=== PATIENT | female | born 1975 | race Caucasian/White ===

== ENCOUNTER 2018-11-24 16:19 | Outpatient (CLI) | payer BC ==
--- NOTE | 2018-11-24 16:44 | MMO ---
Bilateral MAMMO Bilat Screen [facility]. CLINICAL HISTORY: Patient is 42 years old and is seen for screening. The patient has no family history of breast cancer. The patient has no personal history of cancer. VIEWS: The views performed were: bilateral craniocaudal with tomosynthesis and bilateral mediolateral oblique with tomosynthesis. FILMS COMPARED: The present examination has been compared to a prior imaging study performed at [facility] on 01/19/2017. MAMMOGRAM FINDINGS: There are scattered fibroglandular densities. There are no suspicious masses, suspicious calcifications, or new areas of architectural distortion. IMPRESSION: THERE IS NO MAMMOGRAPHIC EVIDENCE OF MALIGNANCY. A ROUTINE FOLLOW-UP MAMMOGRAM IN 1 YEAR IS RECOMMENDED. THE RESULTS OF THIS EXAM WERE SENT TO THE PATIENT. ACR BI-RADS Category 1 - Negative MAMMOGRAPHY NOTE: 1. A negative mammogram report should not delay a biopsy if a dominant of clinically suspicious mass is present. 2. Approximately 10% to 15% of breast cancers are not detected by mammography. 3. Adenosis and dense breasts may obscure an underlying neoplasm.
== END 2018-11-24 16:20 | disposition home or self-care (01) ==
LOC: BICMAMMO 16:19
PROVIDERS: ATTEND Family Medicine Sports Medicine
DX: Z12.31 Encounter for screening mammogram for malignant neoplasm of breast (principal)
CPT/HCPCS: 77063; 77067

== ENCOUNTER 2020-03-27 08:22 | Outpatient (CLI) | payer BC ==
--- NOTE | 2020-03-27 08:44 | RAD ---
EXAM: XR Cerv Sp Ap Lat STANDARD PROVIDED CLINICAL HISTORY: Neck pain with pain on left side of neck. No recent injury. Occasional bilateral hand tightness. COMPARISON: None FINDINGS: C1 to the cervicothoracic junction is seen on the lateral view. Straightening of the normal cervical lordotic curvature is present. Vertebral body heights and intervertebral disc spaces are within normal limits. Multilevel facet hypertrophic changes are present greatest at the C3-4 and C4-5 levels . No fracture or subluxation is seen. Prevertebral soft tissues have a normal appearance. IMPRESSION: Multilevel facet hypertrophic changes without evidence of fracture or subluxation.
== END 2020-03-27 08:23 | disposition home or self-care (01) ==
LOC: BICRAD 08:22
PROVIDERS: ATTEND Physician Assistant
DX: M54.2 Cervicalgia (principal); M89.38 Hypertrophy of bone, other site
CPT/HCPCS: 36415; 72040; 80053; 80061; 85025

== ENCOUNTER 2022-05-11 12:18 | Outpatient (CLI) | payer BC | END 2022-05-11 12:19 | disposition home or self-care (01) | LOC: BICMAMMO 12:18 | PROVIDERS: ATTEND Nurse Practitioner Family | DX: Z12.31 Encounter for screening mammogram for malignant neoplasm of breast (principal) | CPT/HCPCS: 77063; 77067 ==

== ENCOUNTER 2023-05-18 17:00 | Outpatient (CLI) | payer BC | END 2023-05-18 17:01 | disposition home or self-care (01) | LOC: SLEEPLAB 17:00 | PROVIDERS: ATTEND Nurse Practitioner Family | DX: G47.33 Obstructive sleep apnea (adult) (pediatric) (principal); F41.8 Other specified anxiety disorders; E66.9 Obesity, unspecified; R06.83 Snoring; Z68.26 Body mass index [BMI] 26.0-26.9, adult | CPT/HCPCS: 95800 ==

== ENCOUNTER 2023-08-19 10:06 | Outpatient (CLI) | payer BC | END 2023-08-19 10:07 | disposition home or self-care (01) | LOC: BICMAMMO 10:06 | PROVIDERS: ATTEND Nurse Practitioner Family | DX: Z12.31 Encounter for screening mammogram for malignant neoplasm of breast (principal) | CPT/HCPCS: 77063; 77067 ==